=== PATIENT | female | born 1950 | race Caucasian/White ===

== ENCOUNTER 2019-05-08 13:29 | Outpatient (CLI) | payer MEDICARE, OTHER ==
[~2019-05-08 13:29] MED LIST: BUPIVACAINE HCL 0.5% (5MG/ML) PF 10ML VIAL IV ONE; IOHEXOL 240 MG/ML BOTTLE 50 ML ONE; Lidocaine 1% 5ml 10 MG/ML VIAL ONE; methylPREDNISolone ACETATE 40 MG/ML VIAL IM ONE
== END 2019-05-08 15:20 ==
LOC: OUT 13:29
DX: M16.12 Unilateral primary osteoarthritis, left hip (principal)
CPT/HCPCS: 20610; 77002; J1030; J3490